=== PATIENT | female | born 1970 | race Two or more races ===

== ENCOUNTER 2024-02-14 22:31 | Emergency (ER) | payer MEDICAID, OTHER ==
[~2024-02-14] VITALS: Ht 142.2 cm; Wt 48.3 kg
[2024-02-15] MEDS: LORazepam 0.5 MG TAB PO ONE (00:35)
[2024-02-15] MEDS: cloNIDine HCL 0.1 MG TAB PO ONE (00:35)
[2024-02-15 01:38] VITALS: BP 124/77
[2024-02-15] MEDS ORDERED: AML5T PO (01:44)
[2024-02-15 01:49] VITALS: PULSE 80; RESP 18; O2SAT 98
== END 2024-02-15 01:48 | disposition home or self-care (01) ==
LOC: ER 22:31
DX: I10 Essential (primary) hypertension (principal)